=== PATIENT | female | born 1965 | race Caucasian/White ===

== ENCOUNTER 2022-03-21 08:11 | Emergency (ER) | payer OTHER ==
[~2022-03-21] VITALS: Ht 157.5 cm; Wt 71.2 kg
[~2022-03-21 08:11] MED LIST: CIPRO500 MG PO; CODE1TAB37 PO; DIAZEPAM10 MG PO; KETO10TA2 PO; Mylicon 125MG PO; NEURONTIN300 MG PO; NOLVADEX10 MG; NORFLEX100MG PO; PROTONIX20 MG; PYRIDIUM100 M1 PO
[2022-03-21] MEDS ORDERED: NASAL MIST126 ML (08:24)
[2022-03-21] MEDS ORDERED: NEURONTIN300 MG PO (08:24)
[2022-03-21] MEDS ORDERED: MACRODANTIN100 M1 PO (11:15)
== END 2022-03-21 11:45 | disposition home or self-care (01) ==
LOC: ER 08:11
DX: N39.0 Urinary tract infection, site not specified (principal)

== ENCOUNTER 2022-05-27 13:45 | Emergency (ER) | payer OTHER ==
[~2022-05-27] VITALS: Ht 157.5 cm; Wt 67.1 kg
[~2022-05-27 13:45] MED LIST changes: +MACRODANTIN100 M1 PO; +NASAL MIST126 ML
== END 2022-05-27 17:24 | disposition home or self-care (01) ==
LOC: ER 13:45
DX: R06.02 Shortness of breath (principal); R07.89 Other chest pain; T44.4X5A Adverse effect of predominantly alpha-adrenoreceptor agonists, initial encounter

== ENCOUNTER → 2022-10-02 | Emergency (ER) | payer OTHER | END | disposition left against medical advice (07) | LOC: ER 04:10 | DX: Z53.21 Procedure and treatment not carried out due to patient leaving prior to being seen by health care provider (principal) ==

== ENCOUNTER 2024-12-20 07:29 | Outpatient (CLI) | payer OTHER | END 2024-12-20 07:31 | disposition home or self-care (01) | LOC: MRI 07:29 | DX: M54.17 Radiculopathy, lumbosacral region (principal); M54.50 Low back pain, unspecified; M54.16 Radiculopathy, lumbar region | CPT/HCPCS: 72148 ==

== ENCOUNTER 2025-01-28 10:23 | Outpatient (CLI) | payer OTHER | END 2025-01-28 10:28 | disposition home or self-care (01) | LOC: SONOGRAMA 10:23 | DX: M75.102 Unspecified rotator cuff tear or rupture of left shoulder, not specified as traumatic (principal); M75.52 Bursitis of left shoulder ==

== ENCOUNTER 2025-03-05 11:30 | Outpatient (CLI) | payer OTHER | END 2025-03-05 11:32 | disposition home or self-care (01) | LOC: MAMO-SONO 11:30 | DX: Z85.3 Personal history of malignant neoplasm of breast (principal); Z98.82 Breast implant status; G44.319 Acute post-traumatic headache, not intractable ==